=== PATIENT | male | born 1960 | race Caucasian/White ===

== ENCOUNTER 2025-07-12 07:19 | Day surgery (SDC) | payer MEDICARE, SELFPAY ==
[2025-07-12] VITALS (8 sets, daily range): BP systolic 131–141; BP diastolic 67–80; BMI 42.9
[2025-07-12 08:07] LABS: Glucose - Point of Care 109 mg/dl (70-99)
[2025-07-12] MEDS: LOW STRENGTH ASPIRIN 81 MG PO (08:20)
[2025-07-12] MEDS: NSS 372 ML IV (08:20)
--- NOTE | 2025-07-12 08:43 | ITS.CL.CATH ---
Line Producer - Catheterization
Cardiac Catheterization
Procedure Report:
LEFT HEART CATHETERIZATION
Date of Procedure: July 12, 2025
Referring: Bj Madden MD
PROCEDURES:
1. Left heart catheterization, coronary angiogram.
2. Selective graft angiography.
3. Moderate sedation.
INDICATION: Abnormal stress test in the setting of ongoing dyspnea on exertion.
ACCESS: Right radial artery, 6Fr. sheath, under US guidance.
HEMODYNAMICS : (mmHg)
AO (s/d) : 139/73
LVEDP : 27
No significant gradient across the aortic valve to suggest aortic stenosis.
CORONARY FINDINGS
Dominance: Right
Left Main Trunk (LMT): Large caliber vessel that gives rise to the LAD and LCx branches and is free of angiographic disease.
Left Anterior Descending Artery (LAD): Large caliber vessel with a occlusion in the midportion with a widely patent LEON graft. There are two small to medium caliber diagonal branches proximal to the LAD occlusion without obstructive coronary
artery disease.
Left Circumflex Artery (LCx): Large caliber vessel that gives off 1 major obtuse marginal (OM) branch as it courses along the atrio-ventricular (AV) groove. Mid left circumflex has a smooth 30 to 40% stenosis.
Right Coronary Artery (RCA): Large caliber dominant vessel that gives rise to the posterior descending artery (RPDA) and postero-lateral ventricular (RPLV) branches distally. There is mild to moderate diffuse atherosclerotic plaque
GRAFT ANGIOGRAPHY:
1. LEON TO LAD: Widely patent.
SEDATION: 33 minutes of procedural sedation was utilized. IV Midazolam and IV Fentanyl were administered. An independent biomedical electronics technician was present to assist with and help manage the patient's level of consciousness and physiologic status.
RADIATION SUMMARY: Fluoro Time (min): 3.8, Dose (mGy): 426.6, DAP (Gy.cm2) : 29.4
Closure Device: There were no immediate intra-procedural complications. The sheath was pulled in the manufacturing lab technician and a vascular-band applied to the right wrist for radial artery hemostasis using the patent hemostasis technique.
CONCLUSIONS
1. Significant mid LAD disease with widely patent LEON to LAD graft.
2. Mild to moderate plaque in remainder of the coronary arteries.
3. Significantly elevated LVEDP at 27 mmHg.
RECOMMENDATIONS
1. Wean radial band per protocol. Monitor right hand perfusion and for bleeding from the radial site following removal of the vascular-band following trans-radial access.
2. Continue aggressive medical therapy and risk factor modification for secondary CAD prevention. 1 dose of IV diuresis followed by Lasix daily at home and close monitoring of renal function.
3. Hydrate with normal saline to mitigate the risk of contrast-induced acute kidney injury.
4. Follow-up with Dr. Bj Madden
Copy to: Bj Madden
Lindsey Azul MD, FACC, [facility]
[2025-07-12 09:44] LABS: Glucose - Point of Care 141 mg/dl (70-99)
== END 2025-07-12 11:59 | disposition home or self-care (01) ==
LOC: CATH 07:19
PROVIDERS: ATTENDING PHYSICIAN Internal Medicine Interventional Cardiology; FAMILY PHYSICIAN Family Medicine
DX: I25.10 Atherosclerotic heart disease of native coronary artery without angina pectoris (principal); Z95.1 Presence of aortocoronary bypass graft; R94.39 Abnormal result of other cardiovascular function study; R06.09 Other forms of dyspnea; Z79.899 Other long term (current) drug therapy; Z79.01 Long term (current) use of anticoagulants; Z79.890 Hormone replacement therapy; Z79.52 Long term (current) use of systemic steroids; Z79.85 Long-term (current) use of injectable non-insulin antidiabetic drugs; I10 Essential (primary) hypertension; R60.0 Localized edema
CPT/HCPCS: 99152; 99153; 82962; 93459; C1894; Q9967